=== PATIENT | female | born 1960 | race Two or more races ===

== ENCOUNTER → 2024-07-09 | Outpatient (CLI) | payer MEDICAID, SELFPAY ==
--- NOTE | 2024-07-09 11:00 | XR_ITS ---
Examination: Screening digital mammography, bilateral Computer aided detection 3-D breast Tomosynthesis, bilateral Date and time of exam: July 09, 2019 5:11 AM No priors Indication: Screening, family history breast cancer Technique: Nonmagnified MLO, CC views of the breasts to been obtained, reconstructed from 3-D Tomosynthesis images. R2 computer aided detection program utilized for evaluation of suspicious masses and/or abnormal calcifications. 3-D Tomosynthesis images obtained. Findings: Scattered areas of fibroglandular density 16 mm focal asymmetry upper inner right breast anterior depth Benign calcifications Impression: BI-RADS Category 0: Incomplete: Need additional imaging evaluation 16 mm focal asymmetry upper inner right breast anterior depth, recommend follow-up spot tomographic views of this asymmetry as well as right breast sonography to complete the workup
== END | disposition home or self-care (01) ==
PROVIDERS: Referring Provider Physician Assistant; Visit Provider Physician Assistant
DX: Z12.31 Encounter for screening mammogram for malignant neoplasm of breast (principal); N64.89 Other specified disorders of breast
CPT/HCPCS: 77063; 77067

== ENCOUNTER → 2024-08-01 | Outpatient (CLI) | payer MEDICAID, SELFPAY ==
--- NOTE | 2024-08-01 14:00 | XR_ITS ---
Examination: Breast ultrasound, unilateral, right complete Date and time of exam: August 01, 2024 1435 hours INDICATIONS: Mammogram June 29, 2024 16 mm focal asymmetry upper inner right breast Technique: Real-time powell scale ultrasonographic imaging performed right breast including all 4 quadrants as well as nipple retroareolar and axillary region. Findings: No cystic or solid mass IMPRESSION: BI-RADS Category 1: Negative study
--- NOTE | 2024-08-01 14:30 | XR_ITS ---
Examination: Diagnostic digital mammography, unilateral, right Computer aided detection 3-D breast Tomosynthesis, unilateral Date and time of exam: August 01, 2024 1430 hours INDICATIONS: Mammogram July 09, 2024 16 mm focal asymmetry upper inner right breast anterior depth Technique: Nonmagnified MLO, CC views of the right breast have been obtained, reconstructed from 3-D Tomosynthesis images. R2 computer aided detection program utilized for evaluation of suspicious masses and/or abnormal calcifications. 3-D Tomosynthesis images obtained. Findings: Scattered areas of fibroglandular density Persistent focal asymmetry inner right breast on the spot compression CC views, upper right breast on the MLO view Impression: BI-RADS category 3: Probably benign findings Recommend 1 additional 6 month right mammogram follow-up to document stability of focal asymmetry described above right breast
== END | disposition home or self-care (01) ==
PROVIDERS: PCP Physician Assistant; Referring Provider Physician Assistant; Visit Provider Physician Assistant
DX: R92.331 Mammographic heterogeneous density, right breast (principal); N64.89 Other specified disorders of breast
CPT/HCPCS: 76641; 77061; 77065; G0279

== ENCOUNTER → 2024-08-14 | Outpatient (CLI) | payer MEDICAID, SELFPAY ==
--- NOTE | 2024-08-14 11:00 | XR_ITS ---
Examination: Breast ultrasound, unilateral, left Date and time of exam: August 14, 2024 1100 hrs. Indication: Left breast pain with palpable lump noticed in the left breast beginning 2 weeks ago, family history breast cancer Technique: Real-time powell scale ultrasonographic imaging performed left breast including all 4 quadrants as well as nipple retroareolar and axillary region. Findings: No solid nodules 11:00 cyst 4 x 4 millimeter Impression: BI-RADS Category 2: Benign findings
== END | disposition home or self-care (01) ==
PROVIDERS: PCP Physician Assistant; Referring Provider Physician Assistant; Visit Provider Physician Assistant
DX: N64.4 Mastodynia (principal)
CPT/HCPCS: 76641

== ENCOUNTER → 2024-10-02 | Outpatient (CLI) | payer MEDICAID, SELFPAY ==
--- NOTE | 2024-10-02 07:30 | XR_ITS ---
Examination: MRI brain without intravenous contrast. Date and time of exam: October 02, 2024 0744 hours INDICATIONS: Intermittent frontal headaches beginning 30 years ago Technique: Multiple axial and sagittal images of the brain obtained. Siemens high-resolution 1.5 Iman short bore scanners utilized. Sagittal sections, T1-weighted, TR 500, TE 14, are performed. Axial sections proton-density and T2-weighted have been obtained. Inversion recovery axial images, TR 9, 260, TE 111, TI 2500. Diffusion weighted images, axial sections, TR 4800, TE 128, B value 1000 Axial sections, ADC map, TR 4800, TE 128 Findings: Enlargement of the sella turcica is not present. The optic chiasm and infundibular are not remarkable. Prepontine and interpeduncular cisterns are not enlarged. There is no localized enlargement of the medulla or brenda. Fourth ventricle and cerebellar tonsils appear normal in position. No subacute area of hemorrhage density is seen. Mass in the cerebellopontine angle region is not evident. Globes symmetrical. Orbital musculature including medial lateral rectus muscles do not exhibit abnormality. Diffusion-weighted images demonstrate no focus of restricted diffusion. Increased white matter signal mild Mass effect upon the ventricular system is not identified. Impression: Negative for acute hemorrhage mass effect or midline shift No acute infarct Mild bilateral mastoiditis Mild chronic frontal ethmoid sinusitis
== END | disposition home or self-care (01) ==
LOC: SMRI 06:59
PROVIDERS: PCP Physician Assistant; Referring Provider Physician Assistant; Visit Provider Physician Assistant
DX: H70.93 Unspecified mastoiditis, bilateral (principal); J32.2 Chronic ethmoidal sinusitis
CPT/HCPCS: 70551